=== PATIENT | female | born 1965 | race Caucasian/White ===

== ENCOUNTER 2017-09-08 02:50 | Emergency (ER) | payer MEDICAID ==
[~2017-09-08 02:50] MED LIST: ACET-2743 PO; ADV500 IH; ALBU8.5H8 IH; ASCO10007 PO; CHOL100040 PO; D-ME118S56 PO; GUAIFDM PO; HYDR12.54 PO; IPRA3AMP4 IH; LORA10TA7 PO; LOSA50TA37 PO; METO25TA6 PO; OMEP20CA10 PO; TAMS0.4C32 PO; TIOT18CA3 IH; TRAM50TA4 PO
[2017-09-08] MEDS ORDERED: IPRATROPIUM/ALBUTEROL SULFATE 3 ML SOLUTION IH ONE (03:43)
[2017-09-08] MEDS ORDERED: DEXAMETHASONE SOD PHOSPHATE 10MG/ML 1ML VIAL ONE (04:03)
[2017-09-08] MEDS ORDERED: LIDOCAINE HCL-MPF 1% 2ML VIAL ONE (04:04)
[2017-09-08] MEDS ORDERED: CEFTRIAXONE SODIUM 500 MG VIAL ONE ×2 (04:06→04:07)
== END 2017-09-08 05:27 | disposition home or self-care (01) ==
LOC: EDH 02:50
DX: J02.9 Acute pharyngitis, unspecified (principal); J44.9 Chronic obstructive pulmonary disease, unspecified; I10 Essential (primary) hypertension; Z72.0 Tobacco use; Z91.018 Allergy to other foods
CPT/HCPCS: 71046; 87804 ×2; 94640; 96372 ×2; 99285; J0696 ×2; J1100; J3490

== ENCOUNTER 2018-02-25 00:06 | Emergency (ER) | payer MEDICAID ==
[~2018-02-25 00:06] MED LIST changes: +IPRA3AMP24 IH; -IPRA3AMP4 IH
[2018-02-25 00:54] LABS: BASOPHILS % (AUTO) 0.8 % (0.0-5.0); EOSINOPHILS % (AUTO) 3.2 % (0.0-8.0); HEMATOCRIT 40.1 % (36-48); MEAN CORPUSCULAR HEMOGLOBIN 32.4 pg (27.0-33.0); MEAN CORPUSCULAR HGB CONC 33.2 g/dL (32.0-36.0); MEAN CORPUSCULAR VOLUME 97.8 fL (79-99); MONOCYTES % (AUTO) 7.7 % (3.0-13.0); NEUTROPHILS % (AUTO) 48.3 % (40.0-77.0); PLATELET COUNT (AUTO) 422 K/uL (130-400); RED CELL DISTRIBUTION WIDTH 13.4 % (11.0-15.5); WHITE BLOOD COUNT (AUTO) 12.9 K/uL (4.8-10.8)
[2018-02-25] MEDS ORDERED: ORPHENADRINE CITRATE 30 MG/ML ML ONE (00:58)
[2018-02-25] MEDS ORDERED: KETOROLAC TROMETHAMINE 30MG/ML ONE (00:59)
[2018-02-25 01:04] LABS: POTASSIUM 3.2 mmol/L (3.5-5.1)
[2018-02-25] MEDS ORDERED: POTASSIUM BICARB/CIT AC 25 MEQ TABLET.EFF ONE (01:28)
== END 2018-02-25 02:42 | disposition home or self-care (01) ==
LOC: EDH 00:06
DX: S09.8XXA Other specified injuries of head, initial encounter (principal); G89.29 Other chronic pain; M54.2 Cervicalgia; M54.5 Low back pain; E86.0 Dehydration; E87.6 Hypokalemia; I10 Essential (primary) hypertension; Z72.0 Tobacco use; Z91.018 Allergy to other foods; W01.0XXA Fall on same level from slipping, tripping and stumbling without subsequent striking against object, initial encounter; Y93.89 Activity, other specified; Y92.89 Other specified places as the place of occurrence of the external cause; Y99.8 Other external cause status; J44.9 Chronic obstructive pulmonary disease, unspecified
CPT/HCPCS: 36415; 70450; 72100; 72125; 80048; 85025; 96372 ×2; 99285; J1885; J2360

== ENCOUNTER 2018-05-03 12:39 | Emergency (ER) | payer MEDICAID ==
[~2018-05-03 12:39] MED LIST changes: +LOSA50TA25 PO; -LOSA50TA37 PO
[2018-05-03 13:21] LABS: BASOPHILS % (AUTO) 0.2 % (0.0-5.0); EOSINOPHILS % (AUTO) 2.2 % (0.0-8.0); LYMPHOCYTES % (AUTO) 35.4 % (21.0-51.0); MEAN CORPUSCULAR HEMOGLOBIN 33.2 pg (27.0-33.0); MEAN CORPUSCULAR HGB CONC 33.6 g/dL (32.0-36.0); MEAN CORPUSCULAR VOLUME 98.8 fL (79-99); NEUTROPHILS % (AUTO) 53.2 % (40.0-77.0); PLATELET COUNT (AUTO) 442 K/uL (130-400); RED BLOOD CELL COUNT(AUTO) 3.64 MIL/uL (4.00-5.50); RED CELL DISTRIBUTION WIDTH 12.9 % (11.0-15.5); WHITE BLOOD COUNT (AUTO) 14.2 K/uL (4.8-10.8)
[2018-05-03 13:36] LABS: INR 0.96 (0.85-1.15); PARTIAL THROMBOPLASTIN TIME 25.9 SEC (26.3-35.5); PROTHROMBIN TIME 10.1 SEC (9.6-11.6)
[2018-05-03 13:38] LABS: ALBUMIN 2.9 g/dL (3.5-5.0); BILIRUBIN,TOTAL 0.3 mg/dL (0.2-1.0); CREATININE 0.8 mg/dL (0.5-1.5); TOTAL PROTEIN, SERUM 6.5 g/dL (6.0-8.3)
[2018-05-03 13:51] LABS: POTASSIUM 2.6 mmol/L (3.5-5.1)
[2018-05-03 15:06] LABS: APPEARANCE,URINE Clear (CLEAR); BILIRUBIN,URINE Negative (NEGATIVE); COLOR,URINE Yellow (YELLOW); GLUCOSE, URINE (UA) Negative (NEGATIVE); KETONES,URINE Negative (NEGATIVE); LEUKOCYTE ESTERASE ,URINE Negative (NEGATIVE); NITRATE,URINE Negative (NEGATIVE); OCCULT BLOOD,URINE Nonhemolyzed Trace (NEGATIVE); PROTEIN,URINE Negative (NEGATIVE); UROBILINOGEN,URINE 0.2 mg/dL (0.2-1.0)
[2018-05-03 15:18] LABS: WBC,URINE 0-1 /HPF (0-1)
[2018-05-03 15:19] LABS: BACTERIA,URINE Rare /HPF (None Seen); MUCUS,URINE Few LPF (None Seen); SQUAMOUS EPITHELIAL CELL,UR Rare /HPF (0-2)
[2018-05-03] MEDS ORDERED: ASPIRIN 325 MG TABLET ONE (16:49)
[2018-05-03] MEDS ORDERED: POTASSIUM BICARB/CIT AC 25 MEQ TABLET.EFF ONE (16:50)
[2018-05-03] MEDS ORDERED: GADODIAMIDE 10 MMOL/20 ML ML IV ONE ×3 (18:08)
== END 2018-05-03 21:42 | disposition short-term general hospital (02) ==
LOC: EDH 12:39
DX: R20.2 Paresthesia of skin (principal); D72.829 Elevated white blood cell count, unspecified; M54.2 Cervicalgia; R51 Headache; M79.602 Pain in left arm; R00.2 Palpitations; J44.9 Chronic obstructive pulmonary disease, unspecified; I10 Essential (primary) hypertension; E78.5 Hyperlipidemia, unspecified; R93.0 Abnormal findings on diagnostic imaging of skull and head, not elsewhere classified; Z90.49 Acquired absence of other specified parts of digestive tract; Z98.51 Tubal ligation status; Z91.018 Allergy to other foods; Z72.0 Tobacco use
CPT/HCPCS: 36415; 70450; 70544; 70549; 70553; 71045; 76770; 80053; 81001; 84484; 85025; 85610; 85730; 87040 ×2; 93005; 99285; A9579

== ENCOUNTER 2019-01-04 20:16 | Emergency (ER) | payer MEDICAID ==
[~2019-01-04 20:16] MED LIST changes: -LOSA50TA25 PO; +LOSA50TA64 PO
[2019-01-04] MEDS ORDERED: LIDOCAINE 2%-EPI 1:200,000 20 ML VIAL IJ ONE (20:29)
[2019-01-04] MEDS ORDERED: ACETAMINOPHEN EXTRA STRENGTH 500 MG TABLET ONE (20:56)
[2019-01-04] MEDS ORDERED: TETANUS/DIPHTHERIA TOXOID [ADULT] 0.5 ML VIAL IM ONE (20:56)
== END 2019-01-04 21:17 | disposition home or self-care (01) ==
LOC: EDH 20:16
DX: S81.012A Laceration without foreign body, left knee, initial encounter (principal); I10 Essential (primary) hypertension; J44.9 Chronic obstructive pulmonary disease, unspecified; E78.5 Hyperlipidemia, unspecified; Z90.49 Acquired absence of other specified parts of digestive tract; Z98.51 Tubal ligation status; Z91.018 Allergy to other foods; W01.0XXA Fall on same level from slipping, tripping and stumbling without subsequent striking against object, initial encounter; Y93.01 Activity, walking, marching and hiking; Y92.009 Unspecified place in unspecified non-institutional (private) residence as the place of occurrence of the external cause; Y99.8 Other external cause status
CPT/HCPCS: 12034; 73560; 90471; 90714; 99284; J3490

== ENCOUNTER 2019-07-29 14:13 | Emergency (ER) | payer MEDICAID ==
[~2019-07-29 14:13] MED LIST changes: +LEVO500T2 PO; +METH4TAB3 PO; +OMEP-298 PO; -OMEP20CA10 PO; +PRED10TA23 PO
[2019-07-29] MEDS ORDERED: IBUPROFEN 600 MG TABLET ONE (15:05)
== END 2019-07-29 15:50 | disposition home or self-care (01) ==
LOC: EDH 14:13
DX: S43.492A Other sprain of left shoulder joint, initial encounter (principal); I10 Essential (primary) hypertension; J44.9 Chronic obstructive pulmonary disease, unspecified; E78.5 Hyperlipidemia, unspecified; Z88.1 Allergy status to other antibiotic agents; Z91.018 Allergy to other foods; Z72.0 Tobacco use; X58.XXXA Exposure to other specified factors, initial encounter; Y93.89 Activity, other specified; Y92.098 Other place in other non-institutional residence as the place of occurrence of the external cause; Y99.8 Other external cause status
CPT/HCPCS: 73030

== ENCOUNTER 2021-10-12 21:51 | Emergency (ER) | payer MEDICAID ==
[~2021-10-12] VITALS: Ht 149.9 cm; Wt 59.9 kg
[~2021-10-12 21:51] MED LIST changes: +ASCO100031 PO; -ASCO10007 PO; -OMEP-298 PO; +OMEP20CA12 PO
[2021-10-12 22:13] LABS: APPEARANCE,URINE Cloudy (CLEAR); BILIRUBIN,URINE Negative (NEGATIVE); COLOR,URINE Red (YELLOW); GLUCOSE, URINE (UA) Negative (NEGATIVE); KETONES,URINE Negative (NEGATIVE); LEUKOCYTE ESTERASE ,URINE Trace (NEGATIVE); NITRATE,URINE Negative (NEGATIVE); OCCULT BLOOD,URINE Large (NEGATIVE); PH,URINE 6.5 (5.0-8.0); PROTEIN,URINE Trace mg/dL (NEGATIVE); UROBILINOGEN,URINE 0.2 mg/dL (0.2-1.0)
[2021-10-12 22:24] LABS: BACTERIA,URINE None Seen /HPF (None Seen); RBC,URINE TNTC /HPF (0-1); WBC,URINE None Seen /HPF (0-1)
[2021-10-12 22:51] LABS: BASOPHILS % (AUTO) 0.5 % (0.0-5.0); EOSINOPHILS % (AUTO) 8.2 % (0.0-8.0); HEMATOCRIT 37.2 % (36-48); LYMPHOCYTES % (AUTO) 31.6 % (21.0-51.0); MEAN CORPUSCULAR HEMOGLOBIN 31.2 pg (27.0-33.0); MEAN CORPUSCULAR HGB CONC 30.6 g/dL (32.0-36.0); MEAN CORPUSCULAR VOLUME 101.9 fL (79-99); MONOCYTES % (AUTO) 8.2 % (3.0-13.0); NEUTROPHILS % (AUTO) 51.3 % (40.0-77.0); NUCLEATED RED BLOOD CELLS 0.2 % (0.0-0.19); PLATELET COUNT (AUTO) 487 K/uL (130-400); RED BLOOD CELL COUNT(AUTO) 3.65 MIL/uL (4.00-5.50); RED CELL DISTRIBUTION WIDTH 13.7 % (11.0-15.5); WHITE BLOOD COUNT (AUTO) 13.4 K/uL (4.8-10.8)
[2021-10-12 23:04] LABS: CREATININE 0.6 mg/dL (0.5-1.5); POTASSIUM 3.4 mmol/L (3.5-5.1)
[2021-10-12 23:09] LABS: BILIRUBIN,TOTAL 0.2 mg/dL (0.2-1.0); TOTAL PROTEIN, SERUM 7.1 g/dL (6.0-8.3)
[2021-10-13 01:25] VITALS: BP 135/74
[2021-10-13] MEDS ORDERED: HYDR25SU38 RC (01:28)
== END 2021-10-13 01:39 | disposition home or self-care (01) ==
LOC: EDH 21:51
DX: K64.9 Unspecified hemorrhoids (principal); R10.32 Left lower quadrant pain; R91.1 Solitary pulmonary nodule; I10 Essential (primary) hypertension; J44.9 Chronic obstructive pulmonary disease, unspecified; Z91.018 Allergy to other foods; Z79.84 Long term (current) use of oral hypoglycemic drugs; Z79.899 Other long term (current) drug therapy
CPT/HCPCS: 36415; 74176; 80053; 81001; 81025; 85025

== ENCOUNTER 2021-12-02 21:28 | Inpatient (IN) | payer MEDICAID, MEDICARE ==
[~2021-12-02] VITALS: Ht 160 cm; Wt 56.9 kg
[~2021-12-02 21:28] MED LIST changes: +HYDR25SU38 RC
[2021-12-02 21:59] LABS: BASOPHILS % (AUTO) 0.3 % (0.0-5.0); HEMATOCRIT 44.1 % (36-48); LYMPHOCYTES % (AUTO) 9.3 % (21.0-51.0); MEAN CORPUSCULAR HEMOGLOBIN 29.7 pg (27.0-33.0); MEAN CORPUSCULAR HGB CONC 31.3 g/dL (32.0-36.0); MONOCYTES % (AUTO) 15.7 % (3.0-13.0); NEUTROPHILS % (AUTO) 67.9 % (40.0-77.0); NUCLEATED RED BLOOD CELLS 0.5 % (0.0-0.19); PLATELET COUNT (AUTO) 507 K/uL (130-400); RED BLOOD CELL COUNT(AUTO) 4.64 MIL/uL (4.00-5.50); RED CELL DISTRIBUTION WIDTH 13.4 % (11.0-15.5); WHITE BLOOD COUNT (AUTO) 26.2 K/uL (4.8-10.8)
[2021-12-02 22:09] LABS: CREATININE 1.3 mg/dL (0.5-1.5); POTASSIUM 3.6 mmol/L (3.5-5.1)
[2021-12-02 22:17] LABS: ALBUMIN 2.8 g/dL (3.5-5.0); BILIRUBIN,TOTAL 0.6 mg/dL (0.2-1.0); TOTAL PROTEIN, SERUM 8.5 g/dL (6.0-8.3)
[2021-12-02 22:20] LABS: APPEARANCE,URINE Clear (CLEAR); BILIRUBIN,URINE Negative (NEGATIVE); COLOR,URINE Dark Yellow (YELLOW); GLUCOSE, URINE (UA) Negative (NEGATIVE); KETONES,URINE Negative (NEGATIVE); LEUKOCYTE ESTERASE ,URINE Negative (NEGATIVE); NITRATE,URINE Negative (NEGATIVE); OCCULT BLOOD,URINE Trace (NEGATIVE); PH,URINE 5.5 (5.0-8.0); PROTEIN,URINE POS 2+ mg/dL (NEGATIVE)
[2021-12-02 22:29] LABS: BACTERIA,URINE Few /HPF (None Seen); RBC,URINE 0-1 /HPF (0-1); WBC,URINE 0-1 /HPF (0-1)
[2021-12-02 22:30] LABS: HYALINE CASTS, URINE 0-1 /LPF (0-1 /LPF); MUCUS,URINE Few LPF (None Seen); SQUAMOUS EPITHELIAL CELL,UR 0-2 /HPF (0-2)
[2021-12-02] MEDS ORDERED: ALBUTEROL 0.083% 2.5 MG/3 ML INH IH ONE ×2 (22:30)
[2021-12-02] MEDS ORDERED: IPRATROPIUM/ALBUTEROL SULFATE 3 ML SOLUTION IH ONE (22:30)
[2021-12-02] MEDS ORDERED: SOLU-MEDROL 125MG VIAL IVP ONE (22:30)
[2021-12-02] MEDS ORDERED: CEFTRIAXONE 1G VIAL IVP ONE (22:30)
[2021-12-02 22:40] LABS: ABG BASE EXCESS 1.6 mmol/L (-2.0-3.0); ABG HCO3 30.2 mmol/L (21.0-28.0); ABG OXYGEN SATURATION 69.5 % (95.0-99.0); ABG PCO2 66 mmHg (32-45)
[2021-12-02] MEDS ORDERED: CEFTRIAXONE 1G VIAL IV SCH (23:30)
[2021-12-02] MEDS ORDERED: ONDANSETRON 4MG INJ IV PRN (23:30)
[2021-12-02] MEDS ORDERED: DiphenhydrAMINE HCL 50 MG/ML VIAL IV PRN (23:30)
[2021-12-02] MEDS ORDERED: ACETAMINOPHEN 325 MG TAB PO PRN (23:30)
[2021-12-02] MEDS ORDERED: PHARMACY COMMUNICATION MISC SCH (23:45)
[2021-12-03] VITALS (35 sets, daily range): BP systolic 90–140; BP diastolic 56–78
[2021-12-03] MEDS ORDERED: 0.9%NACL 1000ML 1,572 ML IV ONE
[2021-12-03] MEDS ORDERED: 0.9% NACL 250ML 250 ML ONE (00:34)
[2021-12-03] MEDS: DOXYCYCLINE 100MG+NS 250ML 250 ML IV SCH ×3 (00:38→20:16)
[2021-12-03] MEDS: SOLU-MEDROL 125MG VIAL IV SCH ×3 (00:39→22:46)
[2021-12-03] MEDS: 0.9%NACL 1000ML 1,000 ML IV SCH ×2 (00:39→17:11)
[2021-12-03] MEDS: IPRATROPIUM/ALBUTEROL SULFATE 3 ML SOLUTION IH SCH ×5 (00:48→23:14)
[2021-12-03] MEDS ORDERED: IVERMECTIN 3 MG TAB PO SCH (01:30)
[2021-12-03] MEDS ORDERED: PHARMACY COMMUNICATION MISC SCH ×2 (01:30→13:00)
[2021-12-03 06:30] LABS: BASOPHILS % (AUTO) 0.4 % (0.0-5.0); HEMATOCRIT 41.1 % (36-48); LYMPHOCYTES % (AUTO) 7.9 % (21.0-51.0); MEAN CORPUSCULAR HEMOGLOBIN 30.4 pg (27.0-33.0); MEAN CORPUSCULAR HGB CONC 31.6 g/dL (32.0-36.0); MEAN CORPUSCULAR VOLUME 96.3 fL (79-99); MONOCYTES % (AUTO) 8.7 % (3.0-13.0); NUCLEATED RED BLOOD CELLS 0.6 % (0.0-0.19); PLATELET COUNT (AUTO) 471 K/uL (130-400); RED BLOOD CELL COUNT(AUTO) 4.27 MIL/uL (4.00-5.50); RED CELL DISTRIBUTION WIDTH 13.6 % (11.0-15.5); WHITE BLOOD COUNT (AUTO) 25.4 K/uL (4.8-10.8)
[2021-12-03 06:41] LABS: INR 1.12 (0.85-1.15); PROTHROMBIN TIME 12.1 SEC (9.6-11.6)
[2021-12-03 06:43] LABS: CREATININE 1.4 mg/dL (0.5-1.5); MAGNESIUM 2.3 mg/dL (1.80-2.40); PARTIAL THROMBOPLASTIN TIME 27.7 SEC (26.3-35.5); PHOSPHORUS 3.9 mg/dL (2.5-4.9); POTASSIUM 3.9 mmol/L (3.5-5.1)
[2021-12-03] MEDS ORDERED: VANCOMYCIN PROTOCOL PER PHARMACY IV SCH (08:30)
[2021-12-03] MEDS ORDERED: CEFEPIME HCL 2 GM VIAL IVP SCH (08:30)
[2021-12-03] MEDS ORDERED: AZITHROMYCIN 500MG+NS 250ML IVPB ONE (09:00)
[2021-12-03 09:22] LABS: AMPHET/METH SCREEN,URINE NEGATIVE (NEGATIVE); BARBITURATE SCREEN, URINE NEGATIVE (NEGATIVE); BENZODIAZEPINES SCREEN,URINE NEGATIVE (NEGATIVE); CANNABINOID SCREEN,URINE NEGATIVE (NEGATIVE); COCAINE SCREEN,URINE NEGATIVE (NEGATIVE); OPIATE SCREEN,URINE NEGATIVE (NEGATIVE); PHENCYCLIDINE SCREEN,URINE NEGATIVE (NEGATIVE)
[2021-12-03] MEDS: CEFEPIME HCL 2 GM VIAL IVP SCH ×3 (09:29→23:51)
[2021-12-03] MEDS: PANTOPRAZOLE 40 MG/VIAL IVP SCH (09:30)
[2021-12-03] MEDS ORDERED: VANCOMYCIN 750MG VIAL IVPB SCH (09:30)
[2021-12-03] MEDS ORDERED: 0.9% NACL 250ML 250 ML IV SCH ×3 (09:30→12:30)
[2021-12-03] MEDS ORDERED: VANCOMYCIN HCL 1.25 GM/250 ML BAG IV SCH (09:30)
[2021-12-03] MEDS: HEPARIN 5,000 UNIT VIAL SQ SCH ×3 (09:30→20:16)
[2021-12-03 09:41] LABS: APPEARANCE,URINE CLOUDY (CLEAR); BILIRUBIN,URINE NEGATIVE (NEGATIVE); COLOR,URINE YELLOW (YELLOW); GLUCOSE, URINE (UA) NEGATIVE (NEGATIVE); KETONES,URINE NEGATIVE (NEGATIVE); LEUKOCYTE ESTERASE ,URINE TRACE (NEGATIVE); NITRATE,URINE NEGATIVE (NEGATIVE); OCCULT BLOOD,URINE LARGE (NEGATIVE); PROTEIN,URINE 100 mg/dL (NEGATIVE)
[2021-12-03 09:48] LABS: BACTERIA,URINE Few /HPF (None Seen); SQUAMOUS EPITHELIAL CELL,UR 0-2 /HPF (0-2)
[2021-12-03] MEDS: INSULIN HUMULIN R 100 UNIT/ML 3ML SQ SCH ×3 (11:30→20:28)
[2021-12-03] MEDS ORDERED: HYDR12.54 PO (12:45)
[2021-12-03] MEDS ORDERED: METO-409 PO (12:45)
[2021-12-03] MEDS ORDERED: OMEP20CA12 PO (12:45)
[2021-12-03] MEDS ORDERED: ASPI-1197 PO (12:45)
[2021-12-03] MEDS ORDERED: LOPE2TAB26 PO (12:45)
[2021-12-03] MEDS ORDERED: ALBU8.5H8 IH (12:45)
[2021-12-03] MEDS ORDERED: DEXT15LI4 PO (12:45)
[2021-12-03] MEDS ORDERED: [UNRECOGNIZED DRUG - CODE] TP (12:47)
[2021-12-03] MEDS ORDERED: PERMETHRIN LOTION 1% 59ML BOTTLE TP SCH (13:00)
[2021-12-04] VITALS (47 sets, daily range): BP systolic 84–187; BP diastolic 46–96
[2021-12-04 04:01] LABS: BASOPHILS % (AUTO) 0.8 % (0.0-5.0); HEMATOCRIT 37.9 % (36-48); LYMPHOCYTES % (AUTO) 12.9 % (21.0-51.0); MEAN CORPUSCULAR HEMOGLOBIN 30.1 pg (27.0-33.0); MEAN CORPUSCULAR HGB CONC 30.6 g/dL (32.0-36.0); MEAN CORPUSCULAR VOLUME 98.4 fL (79-99); MONOCYTES % (AUTO) 6.7 % (3.0-13.0); NEUTROPHILS % (AUTO) 74.5 % (40.0-77.0); NUCLEATED RED BLOOD CELLS 0.9 % (0.0-0.19); PLATELET COUNT (AUTO) 449 K/uL (130-400); RED BLOOD CELL COUNT(AUTO) 3.85 MIL/uL (4.00-5.50); WHITE BLOOD COUNT (AUTO) 20.3 K/uL (4.8-10.8)
[2021-12-04 04:22] LABS: ALBUMIN 2.1 g/dL (3.5-5.0); BILIRUBIN,TOTAL 0.3 mg/dL (0.2-1.0); CREATININE 0.8 mg/dL (0.5-1.5); MAGNESIUM 2.4 mg/dL (1.80-2.40); PHOSPHORUS 2.5 mg/dL (2.5-4.9); POTASSIUM 4.2 mmol/L (3.5-5.1); TOTAL PROTEIN, SERUM 6.7 g/dL (6.0-8.3)
[2021-12-04] MEDS: 0.9%NACL 1000ML 1,000 ML IV SCH (06:44)
[2021-12-04] MEDS: INSULIN HUMULIN R 100 UNIT/ML 3ML SQ SCH ×4 (06:46→21:00)
[2021-12-04] MEDS: IPRATROPIUM/ALBUTEROL SULFATE 3 ML SOLUTION IH SCH ×4 (06:59→23:23)
[2021-12-04 07:07] LABS: ABG BASE EXCESS 0.7 mmol/L (-2.0-3.0); ABG HCO3 28.9 mmol/L (21.0-28.0); ABG OXYGEN SATURATION 97.3 % (95.0-99.0); ABG PCO2 61 mmHg (32-45)
[2021-12-04] MEDS: PANTOPRAZOLE 40 MG/VIAL IVP SCH (07:54)
[2021-12-04] MEDS: CEFEPIME HCL 2 GM VIAL IVP SCH ×3 (07:54→23:30)
[2021-12-04] MEDS: HEPARIN 5,000 UNIT VIAL SQ SCH ×3 (07:57→21:29)
[2021-12-04] MEDS ORDERED: VANCOMYCIN 750MG VIAL IVPB SCH (09:00)
[2021-12-04] MEDS: DOXYCYCLINE 100MG+NS 250ML 250 ML IV SCH ×2 (10:11→22:02)
[2021-12-04] MEDS: THIAMINE HCL 100 MG/ML 2ML VIAL IVP SCH (10:12)
[2021-12-04] MEDS: BUDESONIDE 0.5 MG/2 ML INH IH SCH ×2 (11:17→19:20)
[2021-12-04] MEDS ORDERED: DIATR MEGLU/DIATRIZOATE SODIUM 30 ML BOTTLE ONE (14:17)
[2021-12-04] MEDS: LACTATED RINGERS 1000ML 1,000 ML IV SCH (14:22)
[2021-12-04] MEDS: SOLU-MEDROL 125MG VIAL IV SCH ×2 (15:14→23:26)
[2021-12-04] MEDS ORDERED: METOPROLOL SUCCINATE 50 MG TAB.SR.24H PO ONE (17:00)
[2021-12-04] MEDS ORDERED: POLYETHYLENE GLYCOL 3350 17 GM POWD.PACK PO ONE (20:00)
[2021-12-05] VITALS (20 sets, daily range): BP systolic 122–184; BP diastolic 65–104
[2021-12-05 04:08] LABS: BASOPHILS % (AUTO) 0.4 % (0.0-5.0); EOSINOPHILS % (AUTO) 0.1 % (0.0-8.0); HEMATOCRIT 35.8 % (36-48); LYMPHOCYTES % (AUTO) 15.3 % (21.0-51.0); MEAN CORPUSCULAR HEMOGLOBIN 29.3 pg (27.0-33.0); MEAN CORPUSCULAR HGB CONC 30.2 g/dL (32.0-36.0); MEAN CORPUSCULAR VOLUME 97.3 fL (79-99); MONOCYTES % (AUTO) 6.5 % (3.0-13.0); NEUTROPHILS % (AUTO) 72.6 % (40.0-77.0); NUCLEATED RED BLOOD CELLS 3.1 % (0.0-0.19); PLATELET COUNT (AUTO) 418 K/uL (130-400); RED BLOOD CELL COUNT(AUTO) 3.68 MIL/uL (4.00-5.50); RED CELL DISTRIBUTION WIDTH 14.1 % (11.0-15.5)
[2021-12-05 04:37] LABS: ALBUMIN 2.1 g/dL (3.5-5.0); BILIRUBIN,TOTAL 0.3 mg/dL (0.2-1.0); CREATININE 0.7 mg/dL (0.5-1.5); MAGNESIUM 2.5 mg/dL (1.80-2.40); PHOSPHORUS 2.1 mg/dL (2.5-4.9); POTASSIUM 4.3 mmol/L (3.5-5.1); TOTAL PROTEIN, SERUM 6.4 g/dL (6.0-8.3)
[2021-12-05] MEDS: DOCUSATE SODIUM 100 MG CAP PO SCH ×2 (05:00→05:49)
[2021-12-05] MEDS: SOLU-MEDROL 125MG VIAL IV SCH ×2 (06:40→14:35)
[2021-12-05] MEDS: IPRATROPIUM/ALBUTEROL SULFATE 3 ML SOLUTION IH SCH ×4 (07:08→23:35)
[2021-12-05] MEDS: BUDESONIDE 0.5 MG/2 ML INH IH SCH ×2 (07:08→18:24)
[2021-12-05] MEDS: INSULIN HUMULIN R 100 UNIT/ML 3ML SQ SCH ×4 (07:25→20:43)
[2021-12-05] MEDS: CEFEPIME HCL 2 GM VIAL IVP SCH (08:22)
[2021-12-05] MEDS: ASPIRIN 81MG CHEW TAB PO SCH (08:22)
[2021-12-05] MEDS: PANTOPRAZOLE 40 MG/VIAL IVP SCH (08:22)
[2021-12-05] MEDS: HEPARIN 5,000 UNIT VIAL SQ SCH ×3 (08:23→20:43)
[2021-12-05] MEDS: THIAMINE HCL 100 MG/ML 2ML VIAL IVP SCH (08:24)
[2021-12-05] MEDS: POLYETHYLENE GLYCOL 3350 17 GM POWD.PACK PO SCH (08:24)
[2021-12-05] MEDS: SENNOSIDES 8.6 MG TABLET PO SCH (08:24)
[2021-12-05] MEDS: DOXYCYCLINE 100MG+NS 250ML 250 ML IV SCH (10:41)
[2021-12-05] MEDS: METOPROLOL SUCCINATE 50 MG TAB.SR.24H PO SCH (10:41)
[2021-12-05] MEDS: LACTATED RINGERS 1000ML 1,000 ML IV SCH ×2 (10:57→20:42)
[2021-12-05] MEDS: LEVOFLOXACIN 750 MG/D5W 150 ML 150 ML IV SCH (12:23)
[2021-12-05] MEDS ORDERED: GUAIFENESIN-DM 200/20 MG 10 ML PO PRN (17:00)
[2021-12-06 03:32] VITALS: BP 150/93
[2021-12-06 04:38] LABS: CREATININE 0.7 mg/dL (0.5-1.5); POTASSIUM 4.4 mmol/L (3.5-5.1)
[2021-12-06 04:39] LABS: BASOPHILS % (AUTO) 0.6 % (0.0-5.0); EOSINOPHILS % (AUTO) 0.1 % (0.0-8.0); HEMATOCRIT 37.2 % (36-48); LYMPHOCYTES % (AUTO) 22.7 % (21.0-51.0); MEAN CORPUSCULAR HEMOGLOBIN 29.2 pg (27.0-33.0); MEAN CORPUSCULAR HGB CONC 29.8 g/dL (32.0-36.0); MEAN CORPUSCULAR VOLUME 97.9 fL (79-99); MONOCYTES % (AUTO) 11.7 % (3.0-13.0); NEUTROPHILS % (AUTO) 59.6 % (40.0-77.0); NUCLEATED RED BLOOD CELLS 2.7 % (0.0-0.19); PLATELET COUNT (AUTO) 456 K/uL (130-400); RED CELL DISTRIBUTION WIDTH 14.5 % (11.0-15.5); WHITE BLOOD COUNT (AUTO) 16.5 K/uL (4.8-10.8)
[2021-12-06] MEDS: DOCUSATE SODIUM 100 MG CAP PO SCH (04:41)
[2021-12-06] MEDS: INSULIN HUMULIN R 100 UNIT/ML 3ML SQ SCH ×4 (05:04→21:00)
[2021-12-06] MEDS: BUDESONIDE 0.5 MG/2 ML INH IH SCH ×2 (06:38→18:33)
[2021-12-06] MEDS: IPRATROPIUM/ALBUTEROL SULFATE 3 ML SOLUTION IH SCH ×4 (06:38→23:39)
[2021-12-06 07:30] VITALS: BP 147/94
[2021-12-06] MEDS: POLYETHYLENE GLYCOL 3350 17 GM POWD.PACK PO SCH (08:05)
[2021-12-06] MEDS: METOPROLOL SUCCINATE 50 MG TAB.SR.24H PO SCH (08:05)
[2021-12-06] MEDS: SENNOSIDES 8.6 MG TABLET PO SCH (08:05)
[2021-12-06] MEDS: PANTOPRAZOLE 40 MG/VIAL IVP SCH (08:05)
[2021-12-06] MEDS: ASPIRIN 81MG CHEW TAB PO SCH (08:05)
[2021-12-06] MEDS: PREDNISONE 20 MG TABLET PO SCH (08:05)
[2021-12-06] MEDS: HEPARIN 5,000 UNIT VIAL SQ SCH ×2 (08:15→13:01)
[2021-12-06 11:00] VITALS: BP 160/72
[2021-12-06] MEDS: LEVOFLOXACIN 750 MG/D5W 150 ML 150 ML IV SCH (11:36)
[2021-12-06 15:30] VITALS: BP 136/94
[2021-12-06] MEDS ORDERED: METOPROLOL SUCCINATE 50 MG TAB.SR.24H PO ONE (16:00)
[2021-12-06 19:12] VITALS: BP 139/90
[2021-12-06] MEDS: APIXABAN 5 MG TABLET PO SCH (21:13)
[2021-12-07] VITALS (8 sets, daily range): BP systolic 138–156; BP diastolic 78–97
[2021-12-07] MEDS: DOCUSATE SODIUM 100 MG CAP PO SCH (04:19)
[2021-12-07 04:30] LABS: HEMATOCRIT 36.6 % (36-48); MEAN CORPUSCULAR HEMOGLOBIN 29.1 pg (27.0-33.0); MEAN CORPUSCULAR HGB CONC 29.2 g/dL (32.0-36.0); MEAN CORPUSCULAR VOLUME 99.5 fL (79-99); NUCLEATED RED BLOOD CELLS 1.1 % (0.0-0.19); RED BLOOD CELL COUNT(AUTO) 3.68 MIL/uL (4.00-5.50); RED CELL DISTRIBUTION WIDTH 14.5 % (11.0-15.5); WHITE BLOOD COUNT (AUTO) 23.7 K/uL (4.8-10.8)
[2021-12-07 04:44] LABS: CREATININE 0.7 mg/dL (0.5-1.5); POTASSIUM 3.8 mmol/L (3.5-5.1)
[2021-12-07] MEDS: INSULIN HUMULIN R 100 UNIT/ML 3ML SQ SCH ×4 (05:33→21:07)
[2021-12-07] MEDS: BUDESONIDE 0.5 MG/2 ML INH IH SCH ×2 (06:48→18:25)
[2021-12-07] MEDS: IPRATROPIUM/ALBUTEROL SULFATE 3 ML SOLUTION IH SCH ×4 (06:50→23:22)
[2021-12-07] MEDS: PANTOPRAZOLE 40 MG/VIAL IVP SCH (08:44)
[2021-12-07] MEDS: ASPIRIN 81MG CHEW TAB PO SCH (08:45)
[2021-12-07] MEDS: APIXABAN 5 MG TABLET PO SCH ×2 (08:45→21:03)
[2021-12-07] MEDS: PREDNISONE 20 MG TABLET PO SCH (08:45)
[2021-12-07] MEDS: METOPROLOL SUCCINATE 50 MG TAB.SR.24H PO SCH (08:45)
[2021-12-07] MEDS: POLYETHYLENE GLYCOL 3350 17 GM POWD.PACK PO SCH (08:45)
[2021-12-07] MEDS: SENNOSIDES 8.6 MG TABLET PO SCH (08:45)
[2021-12-07] MEDS: LEVOFLOXACIN 750 MG/D5W 150 ML 150 ML IV SCH (12:18)
[2021-12-08 04:00] VITALS: BP 173/83
[2021-12-08 04:22] LABS: HEMATOCRIT 34.8 % (36-48); MEAN CORPUSCULAR HEMOGLOBIN 29.7 pg (27.0-33.0); MEAN CORPUSCULAR HGB CONC 30.7 g/dL (32.0-36.0); MEAN CORPUSCULAR VOLUME 96.7 fL (79-99); NUCLEATED RED BLOOD CELLS 0.4 % (0.0-0.19); RED BLOOD CELL COUNT(AUTO) 3.6 MIL/uL (4.00-5.50); RED CELL DISTRIBUTION WIDTH 14.1 % (11.0-15.5); WHITE BLOOD COUNT (AUTO) 19.1 K/uL (4.8-10.8)
[2021-12-08 04:34] LABS: ALBUMIN 2.1 g/dL (3.5-5.0); CREATININE 0.5 mg/dL (0.5-1.5); POTASSIUM 3.8 mmol/L (3.5-5.1)
[2021-12-08 04:38] VITALS: BP 153/95
[2021-12-08] MEDS: INSULIN HUMULIN R 100 UNIT/ML 3ML SQ SCH ×4 (06:53→20:11)
[2021-12-08] MEDS: BUDESONIDE 0.5 MG/2 ML INH IH SCH ×2 (07:08→18:24)
[2021-12-08] MEDS: IPRATROPIUM/ALBUTEROL SULFATE 3 ML SOLUTION IH SCH ×4 (07:08→23:07)
[2021-12-08 07:49] VITALS: BP 106/94
[2021-12-08] MEDS: PANTOPRAZOLE 40 MG TAB DR PO SCH (08:33)
[2021-12-08] MEDS: ASPIRIN 81MG CHEW TAB PO SCH (08:33)
[2021-12-08] MEDS: APIXABAN 5 MG TABLET PO SCH (08:34)
[2021-12-08] MEDS: METOPROLOL SUCCINATE 50 MG TAB.SR.24H PO SCH (08:34)
[2021-12-08] MEDS: PREDNISONE 20 MG TABLET PO SCH (08:34)
[2021-12-08 12:00] VITALS: BP 155/75
[2021-12-08] MEDS: LEVOFLOXACIN 750 MG/D5W 150 ML 150 ML IV SCH (12:51)
[2021-12-08 13:06] LABS: HEMATOCRIT 38.8 % (36-48)
[2021-12-08 16:00] VITALS: BP 154/77
[2021-12-08 18:57] LABS: HEMATOCRIT 38.7 % (36-48)
[2021-12-08 20:12] VITALS: BP 153/78
[2021-12-09 00:16] VITALS: BP 149/87
[2021-12-09 00:27] LABS: HEMATOCRIT 36.2 % (36-48)
[2021-12-09 04:16] VITALS: BP 151/78
[2021-12-09 05:00] LABS: MEAN CORPUSCULAR HGB CONC 31.2 g/dL (32.0-36.0); NUCLEATED RED BLOOD CELLS 0.3 % (0.0-0.19); RED BLOOD CELL COUNT(AUTO) 4.27 MIL/uL (4.00-5.50); RED CELL DISTRIBUTION WIDTH 13.7 % (11.0-15.5); WHITE BLOOD COUNT (AUTO) 20.9 K/uL (4.8-10.8)
[2021-12-09 05:16] LABS: CHLORIDE 99 mmol/L (101-111); CREATININE 0.7 mg/dL (0.5-1.5); GLOMERULAR FILTR. RATE CALC 92 mL/min (>60); GLUCOSE,RANDOM 95 mg/dL (70-105); POTASSIUM 3.4 mmol/L (3.5-5.1); SODIUM SERUM 144 mmol/L (136-145); UREA NITROGEN, BLOOD 21 mg/dL (7-18)
[2021-12-09 05:57] LABS: CARBON DIOXIDE > 45 mmol/L (21-32)
[2021-12-09] MEDS: IPRATROPIUM/ALBUTEROL SULFATE 3 ML SOLUTION IH SCH ×3 (07:12→18:33)
[2021-12-09] MEDS: BUDESONIDE 0.5 MG/2 ML INH IH SCH ×2 (07:12→18:33)
[2021-12-09] MEDS: INSULIN HUMULIN R 100 UNIT/ML 3ML SQ SCH ×3 (07:30→16:30)
[2021-12-09 08:05] VITALS: BP 150/75
[2021-12-09 08:16] LABS: ABG HCO3 48.9 mmol/L (21.0-28.0); ABG OXYGEN SATURATION 94.8 % (95.0-99.0); ABG PCO2 73 mmHg (32-45)
[2021-12-09] MEDS ORDERED: 0.9%NACL 1000ML 1,000 ML IV SCH (08:30)
[2021-12-09] MEDS: PREDNISONE 20 MG TABLET PO SCH (09:12)
[2021-12-09] MEDS: METOPROLOL SUCCINATE 50 MG TAB.SR.24H PO SCH (09:12)
[2021-12-09] MEDS: PANTOPRAZOLE 40 MG TAB DR PO SCH (09:12)
[2021-12-09] MEDS: ASPIRIN 81MG CHEW TAB PO SCH (09:12)
[2021-12-09] MEDS ORDERED: PRED10TA3 PO (09:26)
[2021-12-09] MEDS ORDERED: PRED20TA3 PO (09:26)
[2021-12-09] MEDS ORDERED: LEVO750T46 PO (09:26)
[2021-12-09] MEDS ORDERED: POTASSIUM CHLORIDE 10% ELIXIR 20 MEQ/15 ML UDCUP PO SCH (09:30)
[2021-12-09 12:05] VITALS: BP 159/88
[2021-12-09] MEDS: LEVOFLOXACIN 750 MG/D5W 150 ML 150 ML IV SCH (12:07)
[2021-12-09 16:05] VITALS: BP 161/84
== END 2021-12-09 20:00 | disposition home or self-care (01) | DRG 720 ==
LOC: EDH 21:28 → EDHIP 21:29 → OBSVTOIN 21:29 → 2CH 12-03 11:05 → 2DH 12-05 15:35
PROVIDERS: ADMIT Internal Medicine; ATTEND Internal Medicine
PROC: 5A09357 Assistance with Respiratory Ventilation, Less than 24 Consecutive Hours, Continuous Positive Airway Pressure (ICD-10-PCS; principal; 2021-12-05)
DX: A41.9 Sepsis, unspecified organism (principal); J96.02 Acute respiratory failure with hypercapnia; J15.6 Pneumonia due to other Gram-negative bacteria; J44.0 Chronic obstructive pulmonary disease with (acute) lower respiratory infection; Z99.81 Dependence on supplemental oxygen; E87.1 Hypo-osmolality and hyponatremia; E88.09 Other disorders of plasma-protein metabolism, not elsewhere classified; I48.91 Unspecified atrial fibrillation; B85.0 Pediculosis due to Pediculus humanus capitis; J96.22 Acute and chronic respiratory failure with hypercapnia; J96.21 Acute and chronic respiratory failure with hypoxia; J44.1 Chronic obstructive pulmonary disease with (acute) exacerbation; R65.20 Severe sepsis without septic shock; Z20.822 Contact with and (suspected) exposure to COVID-19; I10 Essential (primary) hypertension; D75.839 Thrombocytosis, unspecified; E78.5 Hyperlipidemia, unspecified; N39.0 Urinary tract infection, site not specified; K92.1 Melena; D64.9 Anemia, unspecified; R53.81 Other malaise; N20.0 Calculus of kidney; Z90.49 Acquired absence of other specified parts of digestive tract; Z91.19 Patient's noncompliance with other medical treatment and regimen; Z72.0 Tobacco use; Z74.01 Bed confinement status; Z82.3 Family history of stroke; Z82.49 Family history of ischemic heart disease and other diseases of the circulatory system; Z82.5 Family history of asthma and other chronic lower respiratory diseases; Z83.3 Family history of diabetes mellitus; Z90.81 Acquired absence of spleen
CPT/HCPCS: 36415; 36600; 51702; 71045; 71046; 71250; 74018; 74176; 80048; 80053; 80305; 81001; 82040; 82435; 82803; 82947; 82948; 83605; 83735; 83880; 84100; 84132; 84145; 84295; 84484; 85014; 85018; 85025; 85027; 85610; 85730; 87040; 87071; 87077; 87186; 87205; 87635; 87804; 93005; 93306; 94640; 94660; 94664; 94667; 94668; 94760; 97039; C9113; C9803; G0378; J0692; J0696; J1200; J1644; J1956; J2930; J3411; J3490; J7030; J7050; J7120; Q9963